=== PATIENT | female | born 1940 | race Caucasian/White ===

== ENCOUNTER 2017-05-15 13:26 | Day surgery (SDC) | payer OTHER ==
[~2017-05-15] VITALS: Ht 152.4 cm; Wt 53.8 kg
[~2017-05-15 13:26] MED LIST: ASPI-306; DICL50TA11 PO; DOCU-159 PO; HYDR25TA6 PO; LEVO50TA74 PO; PARO10TA26 PO; RANI-270; TRAM-40 PO; VIC PO; ZOLP10TA5 PO
[2017-05-15 15:00] VITALS: Ht 152.4 cm; Wt 53.8 kg
[2017-05-15] MEDS ORDERED: PROP10TA6 PO (15:17)
[2017-05-15] MEDS ORDERED: METF500T4 PO (15:17)
[2017-05-15 15:48] VITALS: BP 183/81; PULSE 67; RESP 21
[2017-05-15] MEDS ORDERED: MIDAZOLAM 1 MG/ML 2 ML INJ ONE (16:14)
[2017-05-15] MEDS ORDERED: FENTAnyl 50 MCG/ML VIAL ONE (16:14)
--- NOTE | 2017-05-15 16:17 | OPPN ---
Date/Time of Note Date/Time of Note DATE: 05/15/17 TIME: 16:11 Patient's lower abdominal pain continued commend pelvic ultrasound and follow- up as outpatient Operative Report Preoperative Diagnosis Lower abdominal pain history of diverticulitis Postoperative Diagnosis Diverticulosis fixed colon due to previous abdominal deep scar surgeries scope advanced only to hepatic flexure Operation/Procedure Performed Colonoscopy up to hepatic flexure Surgeon see signature line sales and marketing assistant None Anesthesia: moderate sedation (Versed 2 mg fentanyl 50 mcg total time for colonoscopy moderate sedation 19 minutes) Estimated blood loss: none Transfusion Required none Specimen None Grafts/Implants none Complications none PANCHO MAIREE MD May 15, 2017 16:17
[2017-05-15 16:47] VITALS: BP 168/99; RESP 20
--- NOTE | 2017-05-15 23:19 | GILP ---
DATE OF PROCEDURE: PREOPERATIVE DIAGNOSES: 1. Lower abdominal pain. 2. History of diverticulitis. PROCEDURE DONE: Colonoscopy, using upper endoscope. POSTOPERATIVE DIAGNOSES: 1. Severe fixation due to deep scarring of the abdomen and fixation of the left colon, mid colon an d the transverse colon. 2. Diverticulosis, left colon. 3. No diverticulitis. 4. Unable to reach the cecum. 5. Scope advanced only to hepatic flexure. DESCRIPTION OF PROCEDURE: The patient was put in left lateral decubitus after obtaining informed co nsent, was sedated, monitored on oximetry, EKG and blood pressure. Rectal exam done which was normal. Advanced an Olympus video upper endoscope very carefully with wa ter infusion and flushing, and lower air through the diverticular area in the sigmoid colon and desc ending colon, which is again fixed due to previous surgery. She has a deep abdominal scar, and reynoso sverse colon is also fixed in the scar. I reached the hepatic flexure, could see up to hepatic flex ure, could not advance any further. Scope was withdrawn slowly back. Transverse colon normal. Clemente cending colon, sigmoid colon diverticulosis, quite severe, mild narrowing in the sigmoid colon, but no diverticulitis. Rectum including retroflexion normal. Upon removal of scope, patient had no com plication. Because of her continued lower abdominal pain, pelvic ultrasound has been requested. Recommend late r on may be if necessary. We will follow the patient closely with you. She will see me in 3 to 4 weeks. Dictated By: PANCHO GASTELUM Conf#: [id number] DID#: [id number] CC: DEBRA NASSAR;*EndCC*
== END 2017-05-15 16:47 | disposition home or self-care (01) ==
LOC: SDS 13:26 → GIL 16:47
PROVIDERS: ATTEND Internal Medicine
DX: K57.90 Diverticulosis of intestine, part unspecified, without perforation or abscess without bleeding (principal); I10 Essential (primary) hypertension
CPT/HCPCS: 45378; 82962; J2250; J3010

== ENCOUNTER 2018-04-23 06:32 | Day surgery (SDC) | END 2018-04-23 16:15 | disposition home or self-care (01) ==